=== PATIENT | female | born 1955 | race Caucasian/White ===

== ENCOUNTER 2019-10-22 08:10 | Outpatient (CLI) | payer MEDICARE, SELFPAY ==
--- NOTE | ~2019-10-22 | CT_ITS ---
EXAMINATION: CT lung screening EXAM DATE: 10/22/2019 08:51 INDICATION: Personal history of nicotine dependence. TECHNIQUE: Spiral low dose CT of the chest without contrast. Axial, coronal and sagittal images were reviewed. The dose-length product (DLP) for this examination was 169.43 mGy-cm. The exposure was t ailored according to patient size (auto mA exposure control), and iterative reconstruction (ASIR) was used as additional dose reduction technique. There is no prior study for comparison. FINDINGS: The lungs are clear. Tracheobronchial tree is patent. There is no mediastinal, hilar o r axillary lymphadenopathy. There are no pleural or pericardial effusions. There is no pneumothor ax. Heart normal in size. There is minimal coronary arterial calcification, arterial sclerosis. T here is mild emphysema. There are cholecystectomy clips. Upper abdomen is unremarkable. There i s mild thoracic spondylosis without osteoblastic or osteolytic lesions identified. IMPRESSION: Lung-RADS category 1, negative (<1%chance of malignancy); recommend continued LDCT screen ing in 1 year. > Reviewed, dictated and finalized at location A. 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 >
--- NOTE | ~2019-10-22 | US_ITS ---
EXAMINATION: US right upper quadrant EXAM DATE: 10/22/2019 09:17 INDICATION: Hypercalcemia, abnormal labs. TECHNIQUE: Multiple grayscale and Doppler images of the abdomen right upper quadrant were obtained (b y a technologist who performed the scan) and subsequently reviewed. There is no prior study for marquis carney. FINDINGS: The pancreatic head and body are normal in appearance. The pancreatic tail is not visualized. Mild liver surface undulations without ike nodularity. There are no focal liver lesions identified. T here is no evidence of intrahepatic biliary duct dilation. Portal venous flow was seen in the hepato pedal, normal direction and has normal Doppler waveform. No right-sided hydronephrosis. Common bile duct measures 5 mm, which is normal. The gallbladder fossa is unremarkable. IMPRESSION: 1. Possible cirrhosis. Reviewed, dictated and finalized at location A. 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 Possible cirrhosis.
== END 2019-10-22 08:11 | disposition home or self-care (01) ==
PROVIDERS: PCP Internal Medicine; Visit Provider Internal Medicine
DX: E83.52 Hypercalcemia (principal); R79.89 Other specified abnormal findings of blood chemistry; F17.200 Nicotine dependence, unspecified, uncomplicated; Z12.2 Encounter for screening for malignant neoplasm of respiratory organs; Z87.891 Personal history of nicotine dependence
CPT/HCPCS: 76705; G0297

== ENCOUNTER 2020-06-30 12:55 | Outpatient (CLI) | payer MEDICARE, SELFPAY ==
[2020-07-01 13:17] LABS: SARS-CoV-2 RNA PCR Negative
== END 2020-06-30 12:56 | disposition home or self-care (01) ==
LOC: CHSLAB 12:58
PROVIDERS: PCP Internal Medicine; Visit Provider Internal Medicine
DX: Z20.828 Contact with and (suspected) exposure to other viral communicable diseases (principal)
CPT/HCPCS: 87635; C9803; U0003

== ENCOUNTER 2021-02-09 10:22 | Outpatient (CLI) | payer MEDICARE, SELFPAY ==
--- NOTE | ~2021-02-09 | XR_ITS ---
EXAMINATION:XR_CERV2-3V_CR DATE: 02/09/2021 10:45 INDICATION: Neck pain TECHNIQUE: AP, lateral, and odontoid views of the cervical spine are provided. COMPARISON: None FINDINGS: Alignment is normal. The odontoid is intact. No fracture is identified. The vertebral body heights are normal. There is moderate loss of intervertebral disc space height at C5-6 and mild loss of disc space height at C6-7. Small degenerative osteophytes project from the anterior endplates of m ultiple vertebral bodies. There is moderate facet and uncovertebral joint osteoarthritis at C5-6 and C6-7. Prevertebral soft tissues are normal. IMPRESSION: 1. Mild cervical spondylosis without acute findings. Reviewed, dictated and finalized at location B.
--- NOTE | ~2021-02-09 | XR_ITS ---
EXAMINATION: XR lumbar spine 2-3V DATE: 02/09/2021 10:45 INDICATION: Low back pain TECHNIQUE: Anteroposterior and lateral views of the lumbar spine, and cone-down lateral view of the l umbosacral junction were obtained. COMPARISON: None. FINDINGS: There is no fracture, dislocation, or subluxation. There is mild loss of intervertebral dis c space height at L4-5 and L5-S1. The vertebral body heights are maintained. There is moderate facet osteoarthritis of the lower lumbar spine. Surgical clips in the right upper quadrant are likely from prior cholecystectomy. Phleboliths are noted in the pelvis. There is mild left hip osteoarthritis. IMPRESSION: 1. Mild lumbar spondylosis without acute findings. Reviewed, dictated and finalized at location B.
== END 2021-02-09 10:23 | disposition home or self-care (01) ==
LOC: CHSIMG 10:25
PROVIDERS: PCP Internal Medicine; Visit Provider Internal Medicine
DX: R60.9 Edema, unspecified (principal); R06.00 Dyspnea, unspecified; M54.2 Cervicalgia; M54.9 Dorsalgia, unspecified; E11.9 Type 2 diabetes mellitus without complications
CPT/HCPCS: 72040; 72100

== ENCOUNTER 2023-03-31 07:57 | Outpatient (CLI) | payer MEDICARE, SELFPAY ==
[2023-03-31 08:07] LABS: Basophils Absolute Auto 0.08 K/mm3 (0.00-0.10); Basophils Percent Auto 0.8 % (0.0-1.0); Eosinophils Absolute Auto 0.16 K/mm3 (0.02-0.50); Eosinophils Percent Auto 1.6 % (1.0-6.0); Hematocrit 50.1 % (35.0-42.0); Hemoglobin 16.9 g/dL (11.7-13.8); Immature Granulocyte Absolute 0.02 K/mm3 (0.00-0.00); Immature Granulocyte Percent A 0.2 % (0.0-0.0); Lymphocytes Absolute Auto 3.87 K/mm3 (1.10-4.50); Lymphocytes Percent Auto 37.8 % (18.0-42.0); Mean Corpuscular HGB Conc 33.7 g/dL (32.0-36.0); Mean Corpuscular Hemoglobin 30.6 pg (27.0-31.0); Mean Corpuscular Volume 90.8 fL (78.0-102.0); Mean Platelet Volume 9.6 fl (9.2-11.8); Monocytes Absolute Auto 0.78 K/mm3 (0.10-0.90); Monocytes Percent Auto 7.6 % (2.0-11.0); Neutrophils Absolute Auto 5.3 K/mm3 (1.7-7.2); Platelet Count Result 225 K/mm3 (150-420); Red Blood Count 5.52 M/mm3 (4.20-5.40); Red Cell Distribution Width 12.9 % (11.6-14.4); White Blood Count 10.3 K/mm3 (4.8-10.8)
[2023-03-31 08:16] LABS: Hemoglobin A1C 9.8 % (<5.7)
[2023-03-31 08:53] LABS: Alanine Aminotransferase 49 U/L (14-59); Albumin Level 3.7 g/dL (3.4-5.0); Alkaline Phosphatase 101 U/L (46-116); Anion Gap 7 mmol/L (8-16); Aspartate Amino Transferase 34 U/L (15-37); Bilirubin,Total 0.4 mg/dL (0.00-1.00); Blood Urea Nitrogen 10 mg/dL (7-18); Carbon Dioxide 32 mmol/L (21-32); Chloride 103 mmol/L (98-108); Estimated Glomerular Filt Rate > 60; Glucose 94 mg/dL (70-99); Osmolality Calculated 293 mOsm/kg (285-295); Potassium 4.1 mmol/L (3.5-5.1); Sodium 142 mmol/L (136-145); Total Protein 7.1 g/dL (6.4-8.2)
== END 2023-03-31 07:58 | disposition home or self-care (01) ==
LOC: CHSLAB 07:59
PROVIDERS: PCP Internal Medicine; Visit Provider Internal Medicine
DX: E11.9 Type 2 diabetes mellitus without complications (principal); D75.1 Secondary polycythemia
CPT/HCPCS: 36415; 80053; 83036; 85025

== ENCOUNTER 2023-04-21 16:16 | Outpatient (CLI) | payer MEDICARE, SELFPAY ==
[2023-04-21 16:30] LABS: Basophils Absolute Auto 0.06 K/mm3 (0.00-0.10); Basophils Percent Auto 0.7 % (0.0-1.0); Eosinophils Absolute Auto 0.16 K/mm3 (0.02-0.50); Eosinophils Percent Auto 1.8 % (1.0-6.0); Hemoglobin 16.6 g/dL (11.7-13.8); Immature Granulocyte Absolute 0.04 K/mm3 (0.00-0.00); Immature Granulocyte Percent A 0.5 % (0.0-0.0); Lymphocytes Absolute Auto 2.77 K/mm3 (1.10-4.50); Lymphocytes Percent Auto 31.8 % (18.0-42.0); Mean Corpuscular HGB Conc 33.9 g/dL (32.0-36.0); Mean Corpuscular Hemoglobin 30.3 pg (27.0-31.0); Mean Corpuscular Volume 89.6 fL (78.0-102.0); Mean Platelet Volume 9.9 fl (9.2-11.8); Monocytes Absolute Auto 0.61 K/mm3 (0.10-0.90); Neutrophils Absolute Auto 5.1 K/mm3 (1.7-7.2); Neutrophils Percent Auto 58.2 % (50.0-70.0); Platelet Count Result 197 K/mm3 (150-420); Red Blood Count 5.47 M/mm3 (4.20-5.40); Red Cell Distribution Width 13.2 % (11.6-14.4); White Blood Count 8.7 K/mm3 (4.8-10.8)
[2023-04-21 16:43] LABS: D Dimer 0.39 mg/L (0.19-0.50)
[2023-04-21 16:55] LABS: Alanine Aminotransferase 60 U/L (14-59); Albumin Level 3.3 g/dL (3.4-5.0); Alkaline Phosphatase 97 U/L (46-116); Anion Gap 7 mmol/L (8-16); Aspartate Amino Transferase 41 U/L (15-37); Bilirubin,Total 0.5 mg/dL (0.00-1.00); Blood Urea Nitrogen 13 mg/dL (7-18); Carbon Dioxide 29 mmol/L (21-32); Chloride 100 mmol/L (98-108); Creatine Kinase 45 U/L (26-192); Estimated Glomerular Filt Rate > 60; Glucose 393 mg/dL (70-99); Osmolality Calculated 298 mOsm/kg (285-295); Potassium 4.3 mmol/L (3.5-5.1); Sodium 136 mmol/L (136-145); Total Protein 7.4 g/dL (6.4-8.2); Troponin I 5.4 ng/L (0.00-60.4)
== END 2023-04-21 16:17 | disposition home or self-care (01) ==
LOC: CHSLAB 16:18
PROVIDERS: PCP Internal Medicine; Visit Provider Internal Medicine
DX: R07.9 Chest pain, unspecified (principal)
CPT/HCPCS: 36415; 80053; 82550; 82553; 84484; 85025; 85380

== ENCOUNTER 2023-05-12 09:04 | Outpatient (CLI) | payer MEDICARE, SELFPAY ==
--- NOTE | 2023-05-12 09:11 | EST_ITS ---
Patient Info Name: Sandra Bonner Age: 67 years : 1955 Gender: Female HR: 92 bpm BP: 127 / 67 mmHg Heart Rhythm: 1st degree AV block, Sinus Rhythm Technical Quality: Good Exam Date: 05/12/2023 10:44 AM Exam Location: [facility] Patient Status: Outpatient Admit Date: 05/12/2023 Staff Ordering Physician: Benjie Baldwin MD Attending Provider: Benjie Baldwin MD Exam Type: CA stress tyler w NM Study Info A regadenoson stress test was performed. History/Risk Factors Dyslipidemia: Yes Chronic Lung Disease: Yes Obesity: Yes Diabetes Mellitus: Type II History/Risk Factors hypercalcemia, secondary polycythemia. Summary 1. 1. Negative lexiscan stress test for ischemic ST changes by ECG criteria. 2. 2. Stable hemodynamics throughout the test. 3. 3. Nuclear scan to follow and will be reported separately. Please correlate with it. Protocol: LEXISCAN Stress ECG Details Stage: REST Duration (min): 3 min : 47 sec HR (bpm): 78 SBP (mmHg): 127 DBP (mmHg): 67 Stage: REST Duration (min): 13 min : 35 sec HR (bpm): 69 SBP (mmHg): 127 DBP (mmHg): 67 Stage: STAGE 1 Duration (min): 0 min : 10 sec HR (bpm): 68 SBP (mmHg): 127 DBP (mmHg): 67 Stage: RECOVERY Duration (min): 0 min : 49 sec HR (bpm): 90 SBP (mmHg): 127 DBP (mmHg): 67 Stage: RECOVERY Duration (min): 1 min : 49 sec HR (bpm): 94 SBP (mmHg): 127 DBP (mmHg): 67 Stage: RECOVERY Duration (min): 2 min : 49 sec HR (bpm): 91 SBP (mmHg): 117 DBP (mmHg): 51 Stage: RECOVERY Duration (min): 3 min : 49 sec HR (bpm): 88 SBP (mmHg): 111 DBP (mmHg): 48 Stage: RECOVERY Duration (min): 4 min : 49 sec HR (bpm): 82 SBP (mmHg): 107 DBP (mmHg): 48 Stage: RECOVERY Duration (min): 5 min : 49 sec HR (bpm): 81 SBP (mmHg): 112 DBP (mmHg): 48 Stage: RECOVERY Duration (min): 6 min : 21 sec HR (bpm): --- SBP (mmHg): 112 DBP (mmHg): 48 Rest HR: 69 bpm Peak HR: 98 bpm Rest Sys BP: 127 mmHg Peak Sys BP: 125 mmHg Max Pred HR: 152 bpm % Max Pred HR: 64 % Target HR: 129 bpm Max RPP: 12,250 bpm*mmHg BP Response: Normal blood pressure response Termination Reason: Completed Protocol Cardiac Symptoms: None Total Time: 0 min : 10 sec Rest Quintero BP: 67 mmHg Peak Quintero BP: 43 mmHg Total Dose: 0.4 mg Resting ECG Sinus rhythm, first degree AV block, anteroseptal infarct, age indeterminate. Stress ECG No abnormal ST/T wave changes. Arrhythmias No arrhythmias were observed during the examination. Report Signatures
--- NOTE | 2023-05-12 14:34 | WPDCARIOSTRE ---
Nuclear Stress Test INDICATIONS Indications: Chest pain PROCEDURE Procedure Performed: Myocardial Perf Spect-Multi Procedure: Patient underwent a lexiscan stress test and immediately was injected with 30.2 mCi of cardiolyte. Multiple tomographic images were obtained. These are of good quality. No evidence of perfusion defects with stress imaging. A separate resting images were obtained after patient was injected with 9.8 mCi of cardiolyte. Multiple tomographic images were obtained. These are of good quality. No evidence of perfusion defects with stress imaging. CONCLUSION Conclusion: 1. Normal myocardial perfusion imaging demonstrating no perfusion defects with stress or rest imaging. 2. No reversible ischemia. 3. Left ventriculogram demonstrates normal measured ejection fraction of 78% with no wall motion abnormalities. 4. TID score 0.99 is normal.
== END 2023-05-12 09:05 | disposition home or self-care (01) ==
LOC: CHSCARD 09:05
PROVIDERS: PCP Internal Medicine; Visit Provider Internal Medicine
DX: R07.89 Other chest pain (principal)
CPT/HCPCS: 78452; 93017; A9502; J2785

== ENCOUNTER 2023-10-09 12:33 | Outpatient (CLI) | payer MEDICARE, SELFPAY ==
[2023-10-09 13:00] LABS: Hemoglobin A1C 9.4 % (<5.7)
[2023-10-09 13:43] LABS: Alanine Aminotransferase 49 U/L (14-59); Albumin Level 3.2 g/dL (3.4-5.0); Alkaline Phosphatase 85 U/L (46-116); Anion Gap 9 mmol/L (8-16); Aspartate Amino Transferase 36 U/L (15-37); Bilirubin,Total 0.6 mg/dL (0.00-1.00); Blood Urea Nitrogen 11 mg/dL (7-18); Calcium 9.8 mg/dL (8.5-10.1); Carbon Dioxide 31 mmol/L (21-32); Chloride 105 mmol/L (98-108); Estimated Glomerular Filt Rate > 60; Glucose 99 mg/dL (70-99); Osmolality Calculated 299 mOsm/kg (285-295); Potassium 3.9 mmol/L (3.5-5.1); Sodium 145 mmol/L (136-145); Total Protein 6.8 g/dL (6.4-8.2)
== END 2023-10-09 12:34 | disposition home or self-care (01) ==
LOC: CHSLAB 12:37
PROVIDERS: PCP Internal Medicine; Visit Provider Internal Medicine
DX: E11.9 Type 2 diabetes mellitus without complications (principal); R94.5 Abnormal results of liver function studies
CPT/HCPCS: 36415; 80053; 83036